=== PATIENT | male | born 1950 | race Caucasian/White ===

== ENCOUNTER 2023-08-30 11:27 | Outpatient (CLI) | payer OTHER ==
[2023-08-30 13:20] LABS: #Eosinphils 0.2 10x3/uL (0.0-0.5); #Monocytes 0.6 10x3/uL (0.0-1.1); #Neutrophils 3.5 10x3/uL (1.5-8.4); %Basophils 0.6 % (0.0-2.0); %Eosinophils 3.4 % (0.0-6.0); %Lymphocytes 32.2 % (18.0-47.0); %Monocytes 9.2 % (0.0-10.0); %Neutrophils 54.4 % (40.0-75.0); Hematocrit 41.9 % (38.8-50.0); Hemoglobin 14.4 g/dL (13.5-17.5); Mean Corpuscular HGB CONC 34.4 g/dL (32.0-36.0); Mean Corpuscular Hemoglobin 32.6 pg (27.0-33.0); Mean Corpuscular Volume 94.8 fl (81.2-95.1); Mean Platelet Volume 9.5 fl (7.4-10.4); Platelet Count 244 10x3/uL (150-450); RBC Distribution Width 12.4 % (11.5-14.5); Red Blood Cell (RBC) Count 4.42 10x6/uL (4.32-5.72); White Blood Cell (WBC) Count 6.4 10x3/uL (3.5-10.5)
[2023-08-30 13:29] LABS: Anion Gap 12 mmol/L (10-20); BUN (Urea Nitrogen) 25 mg/dL (8.4-25.7); Calc. Creatinine Clearance 0 mL/min (70-130); Calcium 8.8 mg/dL (7.8-10.44); Carbon Dioxide 23 mmol/L (23-31); Chloride 105 mmol/L (98-107); Estimated GFR 92; Glucose 90 mg/dL (83-110); Potassium 4.8 mmol/L (3.5-5.1); Sodium 135 mmol/L (136-145)
== END 2023-08-30 11:28 | disposition home or self-care (01) ==
LOC: LABBT 11:27
PROVIDERS: ATTEND Specialist
DX: Z01.818 Encounter for other preprocedural examination (principal); K40.91 Unilateral inguinal hernia, without obstruction or gangrene, recurrent; J98.4 Other disorders of lung
CPT/HCPCS: 71046; 80048; 85025; 93005; 93010

== ENCOUNTER 2023-09-02 05:36 | Day surgery (SDC) | payer OTHER ==
[2023-08-30 11:57] VITALS: BMI 25.0
[2023-09-02] MEDS ORDERED: Acetaminophen 500 MG TAB ONE (06:10)
[2023-09-02] MEDS ORDERED: Ketorolac Tromethamine 30 MG (1 mL) VIAL ONE (06:10)
[2023-09-02] MEDS ORDERED: CEFAZOLIN 2 GM VIAL ONE (06:10)
[2023-09-02] MEDS ORDERED: Sodium Chloride 0.9% 100 ML ONE (06:11)
[2023-09-02] MEDS ORDERED: EPINEPHrine 1 MG/ML VIAL ONE (06:47)
[2023-09-02] MEDS ORDERED: Bupivacaine 0.25% HCL 30 ML VIAL ONE (06:47)
[2023-09-02] MEDS ORDERED: fentaNYL PF 100 MCG/2 ML SYRINGE ONE (07:04)
[2023-09-02] MEDS ORDERED: PROPOFOL 20 ML ONE (07:04)
[2023-09-02] MEDS ORDERED: Lidocaine 1% PF 5 ML VIAL ONE (07:06)
[2023-09-02] MEDS ORDERED: Rocuronium Bromide 10 MG/ML (10ML VIAL) ONE (07:06)
[2023-09-02] MEDS ORDERED: ePHEDrine Sulfate 50 MG/10 ML VIAL ONE (07:35)
[2023-09-02] MEDS ORDERED: Ondansetron PF 4 MG/2 ML Vial ONE (08:04)
[2023-09-02] MEDS ORDERED: Dexamethasone 4 mg/ml Vial ONE (08:04)
[2023-09-02] MEDS ORDERED: SUGAMMADEX SODIUM 200 MG/2 ML VIAL ONE (08:07)
[2023-09-02] MEDS ORDERED: fentaNYL 50 mcg/mL 1 mL Vial ONE (09:01)
[2023-09-02] MEDS ORDERED: HYDROcodone/Acetaminophen 5/325 mg Tablet ONE (10:30)
== END 2023-09-02 11:15 | disposition home or self-care (01) ==
LOC: SDC 05:36
PROVIDERS: ATTEND Specialist
PROC: 0YU54JZ Supplement Right Inguinal Region with Synthetic Substitute, Percutaneous Endoscopic Approach (ICD-10-PCS; principal; 2023-09-02)
DX: K40.91 Unilateral inguinal hernia, without obstruction or gangrene, recurrent (principal)
CPT/HCPCS: A4314; C1781; J0171; J0665; J1100; J1885; J2405; J2704; J3010; J3490